=== PATIENT | male | born 1970 | race Caucasian/White ===

== ENCOUNTER 2025-01-19 16:51 | Emergency (ER) | payer OTHER, SELFPAY ==
[2025-01-19 17:26] VITALS: BP 167/93; PULSE 77; RESP 18; TEMP 36.9; O2SAT 95; BMI 40.1
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
[2025-01-19] MEDS: IBUPROFEN TAB 400 MG TABLET 800 MG PO (17:53)
[2025-01-19] MEDS: TETANUS,DIPHTHERIA TOXOIDS/PF (ADULT) 0.5 ML SYRINGE IMi (17:54)
== END 2025-01-19 18:06 | disposition home or self-care (01) ==
LOC: SERX 18:00
PROVIDERS: Emergency Provider Emergency Medicine
DX: T20.212A Burn of second degree of left ear [any part, except ear drum], initial encounter (principal); X11.8XXA Contact with other hot tap-water, initial encounter; Z23 Encounter for immunization
CPT/HCPCS: 86850; 86900; 86901; 90714; 99282; A9270